=== PATIENT | male | born 1980 | race Caucasian/White ===

== ENCOUNTER 2017-05-22 02:57 | Emergency (ER) | payer MEDICAID ==
[~2017-05-22] VITALS: Ht 172.7 cm; Wt 81.6 kg
[2017-05-22 03:03] VITALS: BP 130/69
[2017-05-22 03:33] LABS: WHITE BLOOD COUNT (AUTO) 6.2 K/uL (4.8-10.8)
[2017-05-22 03:35] LABS: HEMATOCRIT 47.4 % (36-52); HEMOGLOBIN 15.9 g/dL (12.0-18.0); MEAN CORPUSCULAR HEMOGLOBIN 31 pg (27-31); MEAN CORPUSCULAR HGB CONC 34 g/dL (33-37); MEAN CORPUSCULAR VOLUME 92 fL (80-94); PLATELET COUNT (AUTO) 339 K/uL (140-450); RED BLOOD CELL COUNT(AUTO) 5.13 MIL/uL (4.20-6.10); RED CELL DISTRIBUTION WIDTH 11.3 % (11.6-13.7)
[2017-05-22 03:48] LABS: CARBON DIOXIDE 27.7 mmol/L (21-32); LYMPHOCYTES % (MANUAL) 46 % (20-46); MONOCYTES % (MANUAL) 4 % (5-12); POTASSIUM 3.7 mmol/L (3.5-5.1); TOTAL BILIRUBIN 0.5 mg/dL (0.0-1.0)
--- NOTE | 2017-05-22 03:56 | NUR ---
PATIENT AMBULATED TO ER BED 4.
--- NOTE | 2017-05-22 04:00 | NUR ---
36/m came in w c/o 08/22 epigastric pain, nonradiating, constant x 1 day. reports he has been drinking alcohol x 3 days, reports nausea, denies V/D, denies fever/chills, SOB/CP, cough. denies melena/hematochezia. Abd soft, round, -tenderness PMH: HLD
--- NOTE | 2017-05-22 04:16 | NUR ---
Dr. Armstrong evaluating patient.
[2017-05-22] MEDS ORDERED: DICYCLOMINE HCL LIQUID 20 MG, ALUMINUM HYD/MAG/SIMETHICONE 30 ML, LIDOCAINE VISCOUS 2% ... PO ONE ×3 (04:20)
--- NOTE | 2017-05-22 04:50 | NUR ---
Patient discharged with v/s stable. Written and verbal after care instructions given and explained. Patient alert, oriented and verbalized understanding of instructions. Ambulatory with steady gait. All questions addressed prior to discharge. ID band removed. Patient advised to follow up with PMD. Rx of PRILOSEC AND ZOFRAN given. Patient educated on indication of medication including possible reaction and side effects. Opportunity to ask questions provided and answered.
[2017-05-22 04:52] VITALS: BP 130/75
== END 2017-05-22 04:50 | disposition home or self-care (01) ==
LOC: MED 02:57
DX: K29.20 Alcoholic gastritis without bleeding (principal); J45.909 Unspecified asthma, uncomplicated
CPT/HCPCS: 36415; 80053; 81002; 82948; 83690; 85025; 99284

== ENCOUNTER 2017-05-24 04:40 | Emergency (ER) | payer MEDICAID ==
[~2017-05-24] VITALS: Ht 177.8 cm; Wt 79.8 kg
[2017-05-24 04:48] VITALS: BP 150/108
--- NOTE | 2017-05-24 04:51 | NUR ---
PT TAKEN TO BED 11
[2017-05-24] MEDS ORDERED: NACL 0.9% 1,000 ML IV ONE (04:55)
[2017-05-24] MEDS ORDERED: KETOROLAC 30 MG/ML VIAL IVP ONE (04:55)
--- NOTE | 2017-05-24 05:00 | NUR ---
PATIENT PRESENTS TO ED WITH ABDOMINAL PAIN .PT STATES THAT HE VOMITED A SMALL AMOUNT OF BLOOD X2 AND HAS ABDOMINAL PAIN 9/10. SKIN IS PINK/WARM/DRY; AAOX4 WITH EVEN AND STEADY GAIT; LUNGS CLEAR BL; HR EVEN AND REGULAR; PT DENIES ANY FEVER, CP, SOB, OR COUGH AT THIS TIME; PATIENT STATES PAIN OF VSS; PATIENT POSITIONED FOR COMFORT; HOB ELEVATED; BEDRAILS UP X2; BED DOWN. ER MD MADE AWARE OF PT STATUS.
--- NOTE | 2017-05-24 05:27 | NUR ---
Dr. Armstrong evaluating patient at bedside.
--- NOTE | 2017-05-24 06:00 | NUR ---
LATE NOTE ENTRY; NORMAL SALINE IV COMPLETED AT 0600
--- NOTE | 2017-05-24 06:04 | NUR ---
Patient discharged with v/s stable. Written and verbal after care instructions given and explained. Patient alert, oriented and verbalized understanding of instructions. Ambulatory with steady gait. All questions addressed prior to discharge. ID band removed. Patient advised to follow up with PMD. Rx of PRILOSEC,ZOFRAN given. Patient educated on indication of medication including possible reaction and side effects. Opportunity to ask questions provided and answered.
[2017-05-24 06:22] VITALS: BP 148/88
== END 2017-05-24 06:00 | disposition home or self-care (01) ==
LOC: MED 04:40
DX: K29.20 Alcoholic gastritis without bleeding (principal); J45.909 Unspecified asthma, uncomplicated
CPT/HCPCS: 96361; 96374; 99284; J1885; J7030